=== PATIENT | male | born 1995 ===

== ENCOUNTER 2017-09-23 12:34 | Emergency (ER) | payer OTHER ==
[2017-09-23 12:50] VITALS: BP 116/79
[2017-09-23] MEDS ORDERED: ROCEPHIN IM ONE (13:21)
[2017-09-23] MEDS ORDERED: ZITHROMAX PO ONE (13:21)
[2017-09-23] MEDS ORDERED: XYLOCAINE 1% MPF 5 mL INFILTRATI ONE (13:21)
[2017-09-23 13:22] LABS: Bacteria,Urine 1+ /HPF (Negative); Bilirubin,Urine NEG (Negative); Blood,Urine NEG (Negative); Ketones,Urine NEG (Negative); Leukocyte Esterase,Urine NEG (Negative); Nitrite,Urine NEG (Negative); Protein,Urine <15 mg/dL mg/dL (Negative); RBC,Urine < 1.0 /HPF (0.0-6.0); Urobilinogen,Urine < 2.0 mg/dL (<2.0); WBC,Urine < 1.0 /HPF (0.0-6.0)
--- NOTE | 2017-09-23 13:22 | Emergency Department Report ---
ED Male HPI - General Chief complaint: Urogenital-Male Stated complaint: POSS STD Time Seen by Provider: 09/23/17 13:11 Source: patient Mode of arrival: Ambulatory Limitations: No Limitations - History of Present Illness Initial comments: 22-year-old male past medical history HIV currently on HAART medicines. CD4 count over 500 viral load undetectable as per patient the last 2 months. Presents with complaint of being exposed to chlamydia by a sex partner. Denies any penile discharge testicular swelling or genitourinary rash. Denies nausea vomiting fever or chills. Patient is awake alert and oriented 3. States he was informed within the last few days. States he has a primary care and ID doctors at [facility] that he follows with closely. - Related Data Sexually active: Yes Previous Rx's Medication Instructions Recorded Last Taken Type Erythromycin [Erythromycin Ophth 10 applic OP Q6HR #1 tube 01/06/16 Unknown Rx Oint] Allergies Allergy/AdvReac Type Severity Reaction Status Date / Time No Known Allergies Allergy Verified 09/23/17 12:46 ED Review of Systems ROS: Stated complaint: POSS STD Other details as noted in HPI Constitutional: denies: chills, fever Eyes: denies: eye pain, eye discharge, vision change ENT: denies: ear pain, throat pain Respiratory: denies: cough, shortness of breath, wheezing Cardiovascular: denies: chest pain, palpitations Endocrine: no symptoms reported Gastrointestinal: denies: abdominal pain, nausea, diarrhea Genitourinary: denies: urgency, dysuria Musculoskeletal: denies: back pain, joint swelling, arthralgia Skin: denies: rash, lesions Neurological: denies: headache, weakness, paresthesias Psychiatric: denies: anxiety, depression Hematological/Lymphatic: denies: easy bleeding, easy bruising ED Past Medical Hx - Past Medical History Previous Medical History?: Yes Hx HIV: Yes - Surgical History Past Surgical History?: No - Social History Smoking Status: Current Every Day Smoker Substance Use Type: None - Medications Home Medications: Home Medications Medication Instructions Recorded Confirmed Last Taken Type Erythromycin [Erythromycin Ophth 10 applic OP Q6HR #1 tube 01/06/16 Unknown Rx Oint] ED Physical Exam - General Limitations: No Limitations General appearance: alert, in no apparent distress - Head Head exam: Present: atraumatic, normocephalic - Eye Eye exam: Present: normal appearance - ENT ENT exam: Present: mucous membranes moist - Neck Neck exam: Present: normal inspection - Respiratory Respiratory exam: Present: normal lung sounds bilaterally. Absent: respiratory distress - Cardiovascular Cardiovascular Exam: Present: regular rate, normal rhythm. Absent: systolic murmur, diastolic murmur, rubs, gallop - GI/Abdominal GI/Abdominal exam: Present: soft, normal bowel sounds - Rectal Rectal exam: Present: deferred - Extremities Exam Extremities exam: Present: normal inspection - Back Exam Back exam: Present: normal inspection - Neurological Exam Neurological exam: Present: alert, oriented X3 - Psychiatric Psychiatric exam: Present: normal affect, normal mood - Skin Skin exam: Present: warm, dry, intact, normal color. Absent: rash ED Course Vital Signs 09/23/17 12:46 Temperature 98.1 F Pulse Rate 97 H Blood Pressure 116/79 O2 Sat by Pulse 98 Oximetry ED Medical Decision Making - Medical Decision Making A/P: Exposure to chlamydia 1-patient empirically treated with azithromycin and ceftriaxone per CDC guidelines for treating stds in HIv + pts. https://www.cdc.gov/std/gp6023/tg- 2015-print.pdf 2-GC cultures sent 3-patient already has follow-up with primary care Critical care attestation.: If time is entered above; I have spent that time in minutes in the direct care of this critically ill patient, excluding procedure time. ED Disposition Clinical Impression: STD exposure Disposition: DC-01 TO HOME OR SELFCARE Is pt being admited?: No Does the pt Need Aspirin: No Condition: Stable Instructions: Chlamydia Infection (ED), Sexually Transmitted Diseases (ED) Referrals: [facility] [Outside] - 3-5 Days [facility] [Provider Group] - 3-5 Days Forms: Work/School Release Form(ED) Time of Disposition: 13:21
== END 2017-09-23 13:34 | disposition home or self-care (01) ==
LOC: ED 12:34
DX: Z20.2 Contact with and (suspected) exposure to infections with a predominantly sexual mode of transmission (principal); F17.200 Nicotine dependence, unspecified, uncomplicated
CPT/HCPCS: 81001; 87591; 96372; 99283; J0696